=== PATIENT | male | born 1995 | race Caucasian/White ===

== ENCOUNTER 2016-12-30 15:10 | Emergency (ER) | payer OTHER ==
[~2016-12-30] VITALS: Ht 175.3 cm; Wt 69.0 kg
[~2016-12-30 15:10] MED LIST: AMPH20TA2 PO
[2016-12-30 15:17] VITALS: Ht 175.3 cm; Wt 69.0 kg
[2016-12-30] MEDS ORDERED: CYCLOBENZAPRINE HCL 10 MG TAB PO STA (15:38)
[2016-12-30] MEDS ORDERED: ACETAMINOPHEN 325 MG TAB PO STA (15:38)
--- NOTE | 2016-12-30 15:50 | EMERGENCY ROOM VISIT NOTE ---
History First contact with patient: 15:26 Chief Complaint: HEADACHE Stated Complaint: HEADACHE,STIFF NECK History of Present Illness The patient is a 21 year old male who presents to the Emergency Room via private vehicle with complaints of "headache, stiff neck". The patient states that yesterday he was snowboarding at [facility], [place], and around 4 5 PM he was consuming alcohol, and attempted to navigate a jump and landed, striking his head in the right side of his body. He states he does not remember much from the incident, but after landing states that his hat was roughly 30 feet away from him, and he was about 20 feet away from the jump. He states that he was not wearing a helmet during the incident. He does not believe that he lost consciousness. He states that he was okay after the incident with some soreness, but woke up today with worsening headache in the left occipital region, left side of the neck, as well as right shoulder and right knee pain. He states that throughout the day his words have become blurry , and he became concerned. He has light sensitivity, as well as visual changes. He notes he does have a history of meningitis, and although the headache and stiff neck or in the similar regions he states that he did not have any of these symptoms prior to the fall. He did not have any illness or symptoms prior to the fall. Since the event he has had a bowel movement, and urinated without difficulty. He denies blood in the bowel or urine. He denies any numbness or tingling in the arms, chest pain, shortness of breath, abdominal pain. He declines lumbar puncture, as well as radiographs of the shoulder, and knee. Tetanus is up-to-date. Review of Systems A complete 6-point Review of Systems was discussed with the patient, with pertinent positives and negatives listed in the History of Present Illness. All remaining Review of Systems questions can be considered negative unless otherwise specified. Past Medical/Surgical History Medical Problems: (1) ADHD (attention deficit hyperactivity disorder) Family History Stroke Social History Smoking Status: Current Some Day Smoker Alcohol Use: occasionally Drug Use: marijuana Marital Status: single Housing Status: lives with roommate Occupation Status: [employer] Current/Historical Medications No Active Prescriptions or Reported Meds Allergies Coded Allergies: No Known Allergies (Unverified , 12/30/16) Physical Exam Vital Signs Date Time Temp Pulse Resp B/P Pulse Ox O2 Delivery O2 Flow Rate FiO2 12/30/16 16:50 37.1 68 18 130/79 97 Room Air 12/30/16 15:17 36.9 83 16 115/76 98 Room Air Physical Exam VITAL SIGNS - Vital signs and nursing notes were reviewed. Patient is afebrile , normotensive, non-tachycardic and is saturating well on room air 98%. GENERAL -21-year-old male appearing his stated age. Communicates well with provider and answers questions appropriately. SKIN - Gross examination of the entire body surface demonstrates small punctate lacerations to the right hand which are healing. These lacerations will not require repair. There is no ecchymosis noted to the body. HEAD - Normocephalic, Atraumatic. No Abreu's Sign or Raccoon's Eyes. No depressed skull fractures palpable. EYES - PERRL with EOMI bilaterally. Without subconjunctival hemorrhage. Palpebral conjunctiva pink and moist with no injection. EARS - No deformities of external structures noted on gross examination bilaterally. No hemotympanum present. No tympanic perforation noted. Handle of malleus, umbo, cone of light, pars tensa/flaccid all easily visualized. NOSE - Midline and without cyanosis. No epistaxis or clear watery discharge noted. Septum midline without deviation. No septal hematoma noted. No overlying ecchymosis noted. MOUTH/OROPHARYNX - Without perioral cyanosis. Tongue midline with equal elevation of palate bilaterally. No blood noted in the oropharynx. No tonsillar hypertrophy, erythema, or exudates noted. No dental fractures noted. NECK - Cervical collar in place. No tenderness to palpation over the cervical spinous processes. Minimal cervical paraspinal muscle tenderness noted bilaterally. LUNGS - Chest wall symmetric without accessory muscle use, intercostals retractions, or central cyanosis. No flail chest or depressed fractures noted. No paradoxical chest wall movements noted. No tenderness to palpation across the anterior and posterior chest dhaliwal. Normal vesicular breath sounds CTA B/ L. No wheezes, rales, or rhonchi appreciated. CARDIAC - RRR with S1/S2. No murmur, rubs, or gallops appreciated. ABDOMEN - Abdominal contour and without pulsations or visible masses. BS normoactive all four quadrants. No rebound tenderness or guarding noted. Negative [place]'s or [place] Gomez's Signs. No tenderness, palpable masses, hepatosplenomegaly, or ascites noted. EXTREMITIES - No gross deformities noted of the extremities. No tenderness to palpation Vascularly intact. There was minimal tenderness to palpation overlying the right shoulder, right ribs and right knee. +5/5 strength noted in UE/LE bilaterally. NEUROLOGIC - Cranial nerves II through XII grossly intact. Sensory intact to light touch throughout. No neurologic deficits appreciated upon exam. PSYCH - Pt is very pleasant and interacts well with examiner. Medical Decision & Procedures ER Provider Diagnostic Interpretation: CT HEAD WITHOUT CONTRAST (CT) CLINICAL HISTORY: Head pain status post head trauma. Memory difficulties. COMPARISON STUDY: 01/11/2016 TECHNIQUE: Axial CT of the brain is performed from the vertex to the skull base. IV contrast was not administered for this examination. CT DOSE: 823.94 mGycm FINDINGS: No intra or extra-axial mass lesions are visualized. There is no CT evidence of acute cortical infarction. There is no evidence of midline shift. There is no acute hemorrhage. No calvarial fractures are visualized. There is no evidence of pathologic ventricular dilatation. There is no evidence of acute sinusitis IMPRESSION: Normal noncontrast head CT. Electronically signed by: Eleno Galvan M.D. 12/30/2016 4:35 PM GCS 15 Patient: MICHEL GREEN Address1: [address] [place] [address] Rec: [id number] Address2: Acct ID: [id number] [facility] Zip: [place] [address] Date: 1995 Sex: M Room/Bed: Ref Phy: No Doctor, Assigned SC: MELISSA Att Phy: Report #: [id number] Josefa Phy: No Doctor, Assigned Test: CSWO Admit Phy: Agent Licensing Clerk: ERIKA Interpreting Phy: Ashish Arthur M.D. Diagnosis: HEADACHE,STIFF NECK Ordering Phy: Kalpesh Gross PA-C Service Date: 12/30/16 Admit Date: 12/30/16 MNE: [id number] CONF: DICTATED BY: Ashish Arthur M.D.]] CC: Kalpesh Gross PA-C Mishock, Kevin, D.O. No Doctor, Assigned Endcc: [~ rep ct add3]] CERVICAL SPINE CT CT DOSE: 473.16 mGycm HISTORY: Trauma Fell, struck head while snowboarding, neck pain TECHNIQUE: Multiaxial CT images of the cervical spine were performed and reformatted in the sagittal and coronal plane without the use of contrast. COMPARISON: None. FINDINGS: No fractures. No subluxation. Prevertebral soft tissues and the C1-C2 interval are intact. No pneumothorax. IMPRESSION: No fractures within the cervical spine. Electronically signed by: Ashish Arthur M.D. 12/30/2016 4:36 PM Dictated Date/Time: 12/30/2016 4:34 PM Medications Administered Medications (Trade) Dose Ordered Sig/Susan Route Start Time Stop Time Status Last Admin Dose Admin Acetaminophen (Tylenol Tab) 650 mg NOW STAT PO 12/30/16 15:38 12/30/16 15:40 DC 12/30/16 16:13 650 MG Cyclobenzaprine HCl (Flexeril Tab) 10 mg NOW STAT PO 12/30/16 15:38 12/30/16 15:40 DC 12/30/16 16:13 10 MG Medical Decision Patient was seen and evaluated as above. After obtaining a thorough history and physical examination was evident the patient is likely experiencing a concussion as well as strain of the neck and soreness of the body status post fall. Because the patient states he does not remember the jump, and since then has developed a stiffening of the neck, difficulty with memory and his presentation today I did elect to obtain a CT scan of the patient's head and neck. He was fitted with a cervical collar probably. Scans were initiated. He did not want any narcotic medication, he was given Tylenol for his pain as well as a Flexeril tablet for his neck stiffness. Results of the imaging as above. No acute findings noted. I suspect the patient is expressing a concussion, as well as cervical sprain. He was provided the neck brace that he may wear for comfort. He was instructed to follow-up with [facility] regarding today's visit. He was specifically educated upon management of concussion and his ailments today. He did decline further imaging of the body such as the shoulder, ribs and right knee as well as declined a lumbar puncture. I do believe this is reasonable as I do not suspect any other fracture nor do I suspect meningitis in this case. The patient had no symptoms prior to falling and his symptoms today are consistent with the injury which she sustained. No evidence of meningitis or encephalitis. He was educated upon management today's findings, was educated upon the importance of follow-up , had questions prior to discharge, and was discharged home in good condition. He was given a home pack for Flexeril of which he is to take prior to going to bed to help with the spasms in his neck. In the evaluation and treatment of this patient, the following differential diagnoses were considered: Concussion, Contrecoup Injury, Brain Tumor, Depression, Encephalitis, Hypothyroidism, Meningitis, CVA, TIA, Migraine, Cluster Headache, Intracranial Abnormality, Intracranial Hemorrhage, Subdural Hematoma, Subarachnoid Hemorrhage, Hydrocephalus, shoulder contusion, shoulder fracture, rib fracture, rib contusion, knee fracture, knee contusion, among others. Declined lumbar puncture, and radiographs of the body. Impression Primary Impression: Snowboard accident Additional Impressions: Closed head injury due to snowboarding Headache Contusion of multiple sites Concussion Neck muscle strain Departure Information Dispostion Home / Self-Care Condition GOOD Prescriptions No Active Prescriptions or Reported Meds Referrals No Doctor, Assigned (PCP) Patient Instructions My [facility] Additional Instructions You have been treated in the Emergency Department for a Closed Head Injury, headache, neck pain, and sore areas. CT Scan of your head/brain/neck demonstrated no acute bleeding or other abnormalities. This does not completely rule out the risk for future damage to the brain. You have respectfully declined spinal tap and xrays at this time. You have been prescribed Flexeril (cyclobenzaprine) 1 tablet before bedtime. Do NOT exceed 30 mg (6 tabs) per day. Take your first dose at bedtime as it can make you drowsy. Always take all medications as prescribed. For pain control, you can use the following [id number] medicines (if >12 yo): - Regular strength (325mg/tab) Tylenol (acetaminophen) 2 tabs every 4-6 hours as needed. Do not exceed 12 tablets in a 24 hour period. Avoid taking more than 4 grams (4000 mg) of Tylenol per day. This includes any other sources of acetaminophen you may take on a regular basis. - Regular strength (200 mg/tab) Advil (ibuprofen) 1-2 tabs every 4-6 hours as needed. Do not exceed a dose of 3200 mg per day. You should relax in a quiet, dark place for the rest of the day. Avoid any possible triggers including: cigarette smoke, caffeine, nicotine, chocolate, wine, beer, loud noises or music, or bright lights. You should schedule a follow-up appointment in 2-3 days with your Primary Care Provider or established Neurologist for further evaluation and treatment of your Headache. ([facility]) Return to the Emergency Department if your current symptoms worsen despite treatment course outlined above, or if you develop any of the following symptoms : intractable pain despite aforementioned treatment course, visual disturbances , loss of vision, unilateral weakness or facial drooping, slurring of speech, loss of coordination, or loss of consciousness. Please return to the emergency department with any new/concerning symptoms. Problem Qualifiers
--- NOTE | 2016-12-30 16:36 | DIAGNOSTIC IMAGING REPORT ---
CT HEAD WITHOUT CONTRAST (CT) CLINICAL HISTORY: Head pain status post head trauma. Memory difficulties. COMPARISON STUDY: 01/11/2016 TECHNIQUE: Axial CT of the brain is performed from the vertex to the skull base. IV contrast was not administered for this examination. CT DOSE: 823.94 mGycm FINDINGS: No intra or extra-axial mass lesions are visualized. There is no CT evidence of acute cortical infarction. There is no evidence of midline shift. There is no acute hemorrhage. No calvarial fractures are visualized. There is no evidence of pathologic ventricular dilatation. There is no evidence of acute sinusitis IMPRESSION: Normal noncontrast head CT. Electronically signed by: Eleno Galvan M.D. 12/30/2016 4:35 PM Dictated Date/Time: 12/30/2016 4:34 PM
--- NOTE | 2016-12-30 16:37 | DIAGNOSTIC IMAGING REPORT ---
CERVICAL SPINE CT CT DOSE: 473.16 mGycm HISTORY: Trauma Fell, struck head while snowboarding, neck pain TECHNIQUE: Multiaxial CT images of the cervical spine were performed and reformatted in the sagittal and coronal plane without the use of contrast. COMPARISON: None. FINDINGS: No fractures. No subluxation. Prevertebral soft tissues and the C1-C2 interval are intact. No pneumothorax. IMPRESSION: No fractures within the cervical spine. Electronically signed by: Ashish Arthur M.D. 12/30/2016 4:36 PM Dictated Date/Time: 12/30/2016 4:34 PM
[2016-12-30 16:50] VITALS: BP 130/79; PULSE 68; TEMP 37.1; O2SAT 97
[2016-12-30] MEDS ORDERED: FLEXERIL HOME PACK 10 MG VIAL PO STA (16:51)
== END 2016-12-30 16:59 | disposition home or self-care (01) ==
LOC: C.EDB 15:11 → C.EDD 16:59
DX: T14.8 Other injury of unspecified body region (principal); S16.1XXA Strain of muscle, fascia and tendon at neck level, initial encounter; S06.0X0A Concussion without loss of consciousness, initial encounter; R51 Headache; V00.311A Fall from snowboard, initial encounter; Y92.89 Other specified places as the place of occurrence of the external cause; Y93.23 Activity, snow (alpine) (downhill) skiing, snowboarding, sledding, tobogganing and snow tubing; F90.9 Attention-deficit hyperactivity disorder, unspecified type; F17.210 Nicotine dependence, cigarettes, uncomplicated